=== PATIENT | male | born 1960 | race Hispanic/Latino ===

== ENCOUNTER 2020-01-24 21:56 | Emergency (ER) | payer BC, SELFPAY | END 2020-01-24 23:10 | disposition home or self-care (01) | LOC: NAV ERS 21:56 | DX: J11.1 Influenza due to unidentified influenza virus with other respiratory manifestations (principal); E78.5 Hyperlipidemia, unspecified; I10 Essential (primary) hypertension; Z86.73 Personal history of transient ischemic attack (TIA), and cerebral infarction without residual deficits; Z79.899 Other long term (current) drug therapy | CPT/HCPCS: 99283 ==

== ENCOUNTER 2021-04-05 08:38 | Emergency (ER) | payer SELFPAY ==
[2021-04-05] MEDS ORDERED: methylPREDNISolone Sod Succ/PF 125 MG/2 ML VIAL ONE (09:18)
== END 2021-04-05 09:27 | disposition home or self-care (01) ==
LOC: NAV ERS 08:38
DX: M54.42 Lumbago with sciatica, left side (principal); Z86.73 Personal history of transient ischemic attack (TIA), and cerebral infarction without residual deficits; Z79.899 Other long term (current) drug therapy
CPT/HCPCS: 72100; 96372; J2930

== ENCOUNTER 2021-08-21 10:10 | Emergency (ER) | payer SELFPAY ==
[2021-08-21] MEDS ORDERED: Acetaminophen 500 MG TAB ONE (10:30)
[2021-08-21 22:45] LABS: SARS-CoV-2 PCR by NAA DETECTED (NotDetected)
== END 2021-08-21 10:38 | disposition home or self-care (01) ==
LOC: NAV ERS 10:10
DX: U07.1 COVID-19 (principal); Z86.73 Personal history of transient ischemic attack (TIA), and cerebral infarction without residual deficits; Z79.899 Other long term (current) drug therapy
CPT/HCPCS: 99283; U0003; U0005

== ENCOUNTER 2022-11-27 10:13 | Outpatient (CLI) | payer BC | END 2022-11-27 10:14 | disposition home or self-care (01) | LOC: NAV RAD 10:13 | PROVIDERS: ATTEND Family Medicine | DX: G56.01 Carpal tunnel syndrome, right upper limb (principal); M19.032 Primary osteoarthritis, left wrist; M19.042 Primary osteoarthritis, left hand ==